=== PATIENT | female | born 1940 | race Caucasian/White ===

== ENCOUNTER 2016-07-08 12:20 | Inpatient (IN) | payer MEDICARE, OTHER ==
[~2016-07-08] VITALS: Ht 157.5 cm; Wt 60.6 kg
[~2016-07-08 12:20] MED LIST: ALBU18HF INH; ALBU8.5H5 IH; AMLO10TA2 PO; ASPI-515 PO; ATOR40TA78 PO; AZIT-14 PO; BUPR75TA6 PO; CARV-39 PO; CEFD300C2 PO; CILO100T PO; CILO100T17 PO; CLOP75TA PO; ENAL10TA PO; ENAL20TA PO; FERR325T20 PO; GLYB5TAB3 PO; HYDR50TA3 PO; IPRA4AER INH; LEVE500T53 PO; METF850T2 PO; METR500T PO; OMEP-110 PO; POTA20LI PO; POTA20TA6 PO; PRAV40TA2 PO; PRED20TA PO; TIOT18CA INH
[2016-07-08] MEDS ORDERED: MIRT15TA4 PO (14:16)
[2016-07-08] MEDS ORDERED: DICY20TA3 PO (14:16)
[2016-07-08] MEDS ORDERED: FAMO-79 PO (14:16)
[2016-07-08] MEDS ORDERED: POTA20TA89 PO (14:16)
[2016-07-08] MEDS ORDERED: ERGO500017 PO (14:16)
[2016-07-08] MEDS ORDERED: CILO100T PO (14:16)
[2016-07-08] MEDS ORDERED: FURO-93 PO (14:16)
[2016-07-08] MEDS ORDERED: SODIUM CHLORIDE 0.9% 1,000ML IVBOLUS ONE (14:30)
[2016-07-08] MEDS ORDERED: SODIUM CHLORIDE FLUSH 10ML SYR IVF ONE (14:30)
[2016-07-08 14:52] LABS: HEMOGLOBIN 10.6 g/dL (11.7-16.4)
[2016-07-08 15:04] LABS: ASPARTATE AMINO TRANSFERASE 12 U/L (15-37); BLOOD UREA NITROGEN 26 mg/dL (7-18)
[2016-07-08] MEDS ORDERED: ALBUTEROL SULFATE 2.5 MG/3 ML NPPB PRN (20:00)
[2016-07-08 20:20] VITALS: BP 165/72
[2016-07-08] MEDS ORDERED: ACETAMINOPHEN 325 MG TABLET PO PRN (20:30)
[2016-07-08] MEDS ORDERED: ONDANSETRON ODT 4 MG PO PRN (20:30)
[2016-07-08] MEDS ORDERED: ERGOCALCIFEROL 50,000 UNIT CAPSULE PO SCH (21:00)
[2016-07-08] MEDS: MIRTAZAPINE 15 MG TABLET PO SCH (21:24)
[2016-07-08] MEDS: ENALAPRIL 10 MG TABLET PO SCH (21:24)
[2016-07-08] MEDS: CARVEDILOL 25 MG TABLET PO SCH (21:24)
[2016-07-08] MEDS: INSULIN REGULAR 100 UNITS/ML, 3ML VIAL SQ-INSULIN SCH (21:57)
[2016-07-08] MEDS: SODIUM CHLORIDE 0.45% 1,000 ML IV SCH (22:00)
[2016-07-08] MEDS: CILOSTAZOL 100 MG TABLET PO SCH (22:44)
[2016-07-08] MEDS: IPRATROPIUM 0.5 MG/2.5 ML INHA NPPB SCH (23:06)
[2016-07-09 00:55] VITALS: BP 165/72
[2016-07-09 02:00] VITALS: BP 158/79
[2016-07-09] MEDS: IPRATROPIUM 0.5 MG/2.5 ML INHA NPPB SCH ×4 (04:53→19:47)
[2016-07-09 05:57] LABS: BLOOD UREA NITROGEN 24 mg/dL (7-18)
[2016-07-09 07:47] VITALS: BP 142/75
[2016-07-09] MEDS: DICYCLOMINE 20 MG TABLET PO SCH (07:50)
[2016-07-09] MEDS: CARVEDILOL 25 MG TABLET PO SCH ×2 (07:50→21:19)
[2016-07-09] MEDS: SODIUM CHLORIDE 0.45% 1,000 ML IV SCH ×2 (07:50→23:55)
[2016-07-09] MEDS: ENALAPRIL 10 MG TABLET PO SCH ×2 (07:50→21:19)
[2016-07-09] MEDS: AMLODIPINE 5 MG TABLET PO SCH (07:50)
[2016-07-09] MEDS: ATORVASTATIN 40 MG TABLET PO SCH (07:50)
[2016-07-09] MEDS: CILOSTAZOL 100 MG TABLET PO SCH ×2 (07:50→21:18)
[2016-07-09] MEDS: POTASSIUM CHLORIDE 20 MEQ TAB.ER.PRT PO SCH (07:50)
[2016-07-09] MEDS: FAMOTIDINE 20 MG TABLET PO SCH (07:50)
[2016-07-09] MEDS: ASPIRIN 81 MG TABLET EC PO SCH (07:50)
[2016-07-09] MEDS: INSULIN REGULAR 100 UNITS/ML, 3ML VIAL SQ-INSULIN SCH ×4 (08:30→21:00)
[2016-07-09 13:00] VITALS: BP 135/55
[2016-07-09] MEDS: VANCOMYCIN 50 MG/ML ORAL SUSP PO SCH ×3 (13:19→23:54)
[2016-07-09 18:31] VITALS: BP 134/53
[2016-07-09] MEDS: MIRTAZAPINE 15 MG TABLET PO SCH (21:18)
[2016-07-10 01:00] VITALS: BP 147/64
[2016-07-10] MEDS: IPRATROPIUM 0.5 MG/2.5 ML INHA NPPB SCH ×4 (03:26→19:15)
[2016-07-10 04:59] LABS: HEMOGLOBIN 8.5 g/dL (11.7-16.4)
[2016-07-10 05:09] LABS: BLOOD UREA NITROGEN 36 mg/dL (7-18)
[2016-07-10] MEDS: VANCOMYCIN 50 MG/ML ORAL SUSP PO SCH (05:51)
[2016-07-10] MEDS: INSULIN REGULAR 100 UNITS/ML, 3ML VIAL SQ-INSULIN SCH ×4 (08:00→20:17)
[2016-07-10 08:13] VITALS: BP 150/63
[2016-07-10] MEDS: FAMOTIDINE 20 MG TABLET PO SCH (08:25)
[2016-07-10] MEDS: CILOSTAZOL 100 MG TABLET PO SCH ×2 (08:25→20:16)
[2016-07-10] MEDS: ASPIRIN 81 MG TABLET EC PO SCH (08:25)
[2016-07-10] MEDS: DICYCLOMINE 20 MG TABLET PO SCH (08:25)
[2016-07-10] MEDS: POTASSIUM CHLORIDE 20 MEQ TAB.ER.PRT PO SCH (08:25)
[2016-07-10] MEDS: CARVEDILOL 25 MG TABLET PO SCH ×2 (08:25→20:16)
[2016-07-10] MEDS: ATORVASTATIN 40 MG TABLET PO SCH (08:25)
[2016-07-10] MEDS: AMLODIPINE 5 MG TABLET PO SCH (08:26)
[2016-07-10] MEDS: ENALAPRIL 10 MG TABLET PO SCH ×2 (08:26→20:16)
[2016-07-10 14:10] VITALS: BP 135/62
[2016-07-10 15:17] LABS: POTASSIUM,URINE RANDOM 28 mmol/L
[2016-07-10] MEDS: SODIUM CHLORIDE 0.45% 1,000 ML IV SCH (18:00)
[2016-07-10] MEDS: MIRTAZAPINE 15 MG TABLET PO SCH (20:16)
[2016-07-10 20:58] VITALS: BP 116/58
[2016-07-11 02:16] VITALS: BP 127/68
[2016-07-11] MEDS: IPRATROPIUM 0.5 MG/2.5 ML INHA NPPB SCH ×4 (02:30→18:58)
[2016-07-11] MEDS: SODIUM CHLORIDE 0.45% 1,000 ML IV SCH ×2 (04:43→14:36)
[2016-07-11] MEDS: INSULIN REGULAR 100 UNITS/ML, 3ML VIAL SQ-INSULIN SCH ×4 (07:00→20:48)
[2016-07-11] MEDS: CARVEDILOL 25 MG TABLET PO SCH ×2 (08:39→20:06)
[2016-07-11] MEDS: AMLODIPINE 5 MG TABLET PO SCH (08:39)
[2016-07-11] MEDS: ASPIRIN 81 MG TABLET EC PO SCH (08:39)
[2016-07-11] MEDS: CILOSTAZOL 100 MG TABLET PO SCH ×2 (08:39→20:05)
[2016-07-11] MEDS: POTASSIUM CHLORIDE 20 MEQ TAB.ER.PRT PO SCH (08:39)
[2016-07-11] MEDS: ATORVASTATIN 40 MG TABLET PO SCH (08:39)
[2016-07-11] MEDS: FAMOTIDINE 20 MG TABLET PO SCH (08:39)
[2016-07-11] MEDS: ENALAPRIL 10 MG TABLET PO SCH ×2 (08:39→20:06)
[2016-07-11] MEDS: DICYCLOMINE 20 MG TABLET PO SCH (08:41)
[2016-07-11 08:44] VITALS: BP 145/61
[2016-07-11 09:10] VITALS: BP 148/71
[2016-07-11 09:34] LABS: BLOOD UREA NITROGEN 39 mg/dL (7-18)
[2016-07-11 09:35] LABS: HEMOGLOBIN 8.8 g/dL (11.7-16.4)
[2016-07-11 13:56] VITALS: BP 138/68
[2016-07-11 18:47] VITALS: BP 124/60
[2016-07-11] MEDS: MIRTAZAPINE 15 MG TABLET PO SCH (20:06)
[2016-07-12] MEDS: SODIUM CHLORIDE 0.45% 1,000 ML IV SCH ×3 (01:55→22:42)
[2016-07-12] MEDS: IPRATROPIUM 0.5 MG/2.5 ML INHA NPPB SCH ×4 (02:25→19:20)
[2016-07-12 03:53] VITALS: BP 139/60
[2016-07-12] MEDS: INSULIN REGULAR 100 UNITS/ML, 3ML VIAL SQ-INSULIN SCH ×4 (07:00→20:12)
[2016-07-12 07:15] LABS: BLOOD UREA NITROGEN 37 mg/dL (7-18)
[2016-07-12 07:17] LABS: HEMOGLOBIN 9.6 g/dL (11.7-16.4)
[2016-07-12 08:59] VITALS: BP 146/61
[2016-07-12] MEDS: POTASSIUM CHLORIDE 20 MEQ TAB.ER.PRT PO SCH (09:37)
[2016-07-12] MEDS: FAMOTIDINE 20 MG TABLET PO SCH (09:37)
[2016-07-12] MEDS: ENALAPRIL 10 MG TABLET PO SCH ×2 (09:37→20:16)
[2016-07-12] MEDS: AMLODIPINE 5 MG TABLET PO SCH (09:37)
[2016-07-12] MEDS: CARVEDILOL 25 MG TABLET PO SCH ×2 (09:37→20:16)
[2016-07-12] MEDS: ATORVASTATIN 40 MG TABLET PO SCH (09:37)
[2016-07-12] MEDS: ASPIRIN 81 MG TABLET EC PO SCH (09:37)
[2016-07-12] MEDS: DICYCLOMINE 20 MG TABLET PO SCH (09:37)
[2016-07-12] MEDS: CILOSTAZOL 100 MG TABLET PO SCH ×2 (09:37→20:16)
[2016-07-12 14:32] VITALS: BP 141/63
[2016-07-12 20:12] VITALS: BP 110/53
[2016-07-12] MEDS: MIRTAZAPINE 15 MG TABLET PO SCH (20:16)
[2016-07-13 02:25] VITALS: BP 123/62
[2016-07-13] MEDS: IPRATROPIUM 0.5 MG/2.5 ML INHA NPPB SCH ×4 (03:15→19:29)
[2016-07-13 06:01] LABS: BLOOD UREA NITROGEN 35 mg/dL (7-18)
[2016-07-13 06:35] VITALS: BP 130/64
[2016-07-13] MEDS: INSULIN REGULAR 100 UNITS/ML, 3ML VIAL SQ-INSULIN SCH ×4 (07:00→20:28)
[2016-07-13] MEDS: CARVEDILOL 25 MG TABLET PO SCH ×2 (08:43→20:05)
[2016-07-13] MEDS: SODIUM CHLORIDE 0.45% 1,000 ML IV SCH ×2 (08:43→19:21)
[2016-07-13] MEDS: TAMSULOSIN 0.4 MG CAP.ER.24H PO SCH (08:43)
[2016-07-13] MEDS: FAMOTIDINE 20 MG TABLET PO SCH (08:44)
[2016-07-13] MEDS: POTASSIUM CHLORIDE 20 MEQ TAB.ER.PRT PO SCH (08:44)
[2016-07-13] MEDS: ASPIRIN 81 MG TABLET EC PO SCH (08:44)
[2016-07-13] MEDS: AMLODIPINE 5 MG TABLET PO SCH (08:44)
[2016-07-13] MEDS: ENALAPRIL 10 MG TABLET PO SCH ×2 (08:45→20:05)
[2016-07-13] MEDS: ATORVASTATIN 40 MG TABLET PO SCH (08:45)
[2016-07-13] MEDS: CILOSTAZOL 100 MG TABLET PO SCH ×2 (08:45→20:05)
[2016-07-13] MEDS: DICYCLOMINE 20 MG TABLET PO SCH (08:46)
[2016-07-13 08:50] LABS: OCCBLD OBC PASS
[2016-07-13 13:59] VITALS: BP 112/53
[2016-07-13 19:50] VITALS: BP 134/52
[2016-07-13] MEDS: MIRTAZAPINE 15 MG TABLET PO SCH (20:05)
[2016-07-14] MEDS: IPRATROPIUM 0.5 MG/2.5 ML INHA NPPB SCH ×3 (02:50→14:05)
[2016-07-14 03:05] VITALS: BP 146/59
[2016-07-14 04:58] LABS: HEMOGLOBIN 8.5 g/dL (11.7-16.4)
[2016-07-14 05:09] LABS: BLOOD UREA NITROGEN 36 mg/dL (7-18)
[2016-07-14] MEDS: SODIUM CHLORIDE 0.45% 1,000 ML IV SCH ×2 (05:35→16:16)
[2016-07-14] MEDS: INSULIN REGULAR 100 UNITS/ML, 3ML VIAL SQ-INSULIN SCH ×3 (07:00→17:12)
[2016-07-14 07:43] VITALS: BP 128/67
[2016-07-14] MEDS: ASPIRIN 81 MG TABLET EC PO SCH (08:35)
[2016-07-14] MEDS: POTASSIUM CHLORIDE 20 MEQ TAB.ER.PRT PO SCH (08:35)
[2016-07-14] MEDS: ATORVASTATIN 40 MG TABLET PO SCH (08:36)
[2016-07-14] MEDS: CILOSTAZOL 100 MG TABLET PO SCH (08:36)
[2016-07-14] MEDS: TAMSULOSIN 0.4 MG CAP.ER.24H PO SCH (08:36)
[2016-07-14] MEDS: DICYCLOMINE 20 MG TABLET PO SCH (08:36)
[2016-07-14] MEDS: CARVEDILOL 25 MG TABLET PO SCH (08:36)
[2016-07-14] MEDS: ENALAPRIL 10 MG TABLET PO SCH (08:37)
[2016-07-14] MEDS: FAMOTIDINE 20 MG TABLET PO SCH (08:37)
[2016-07-14] MEDS: AMLODIPINE 5 MG TABLET PO SCH (08:37)
[2016-07-14 13:58] VITALS: BP 129/64
[2016-07-14] MEDS ORDERED: OMEP20CA14 PO (13:59)
[2016-07-14] MEDS ORDERED: TAMS-11 PO (13:59)
== END 2016-07-14 19:57 | DRG 372 ==
LOC: ED 14:58 → INTOOBSV 17:15 → EDIP 17:15 → 3NE 18:15 → OBSVTOIN 07-09 14:33
PROVIDERS: ADMIT Student in an Organized Health Care Education/Training Program; ATTEND Student in an Organized Health Care Education/Training Program
PROC: 0T9B70Z Drainage of Bladder with Drainage Device, Via Natural or Artificial Opening (ICD-10-PCS; principal; 2016-07-10)
DX: A04.7 Enterocolitis due to Clostridium difficile (principal); N17.9 Acute kidney failure, unspecified; I13.0 Hypertensive heart and chronic kidney disease with heart failure and stage 1 through stage 4 chronic kidney disease, or unspecified chronic kidney disease; I25.10 Atherosclerotic heart disease of native coronary artery without angina pectoris; E11.51 Type 2 diabetes mellitus with diabetic peripheral angiopathy without gangrene; I73.9 Peripheral vascular disease, unspecified; E11.319 Type 2 diabetes mellitus with unspecified diabetic retinopathy without macular edema; F03.90 Unspecified dementia, unspecified severity, without behavioral disturbance, psychotic disturbance, mood disturbance, and anxiety; R31.9 Hematuria, unspecified; D50.9 Iron deficiency anemia, unspecified; N18.9 Chronic kidney disease, unspecified; R91.1 Solitary pulmonary nodule; E11.22 Type 2 diabetes mellitus with diabetic chronic kidney disease; J44.9 Chronic obstructive pulmonary disease, unspecified; K58.9 Irritable bowel syndrome, unspecified; R31.0 Gross hematuria; I50.9 Heart failure, unspecified; Z86.14 Personal history of Methicillin resistant Staphylococcus aureus infection; Z86.79 Personal history of other diseases of the circulatory system; Z87.891 Personal history of nicotine dependence; Z86.73 Personal history of transient ischemic attack (TIA), and cerebral infarction without residual deficits; Z82.49 Family history of ischemic heart disease and other diseases of the circulatory system; Z83.6 Family history of other diseases of the respiratory system; Z83.3 Family history of diabetes mellitus; Z88.8 Allergy status to other drugs, medicaments and biological substances; Z88.5 Allergy status to narcotic agent; Z79.01 Long term (current) use of anticoagulants; Z86.718 Personal history of other venous thrombosis and embolism; Z88.6 Allergy status to analgesic agent
CPT/HCPCS: 36415; 74176; 76770; 80048; 80053; 81001; 82272; 82436; 82962; 83605; 83690; 84133; 84300; 84703; 85025; 85610; 87040; 87086; 87324; 94640; 96360; G0378; J1815; J3370; J7644; J7030